=== PATIENT | female | born 1960 | race Caucasian/White ===

== ENCOUNTER → 2020-06-13 11:38 | Outpatient (REF) | payer BC, SELFPAY | LOC: ANHLAB 11:38 | PROVIDERS: PCP Physician Assistant; Visit Provider Nurse Practitioner | DX: C44.329 Squamous cell carcinoma of skin of other parts of face (principal) | CPT/HCPCS: 88305 ==

== ENCOUNTER → 2020-07-10 10:40 | Outpatient (REF) | payer BC, SELFPAY | LOC: ANHLAB 10:40 | PROVIDERS: PCP Physician Assistant; Visit Provider Nurse Practitioner | DX: C44.329 Squamous cell carcinoma of skin of other parts of face (principal); L85.9 Epidermal thickening, unspecified | CPT/HCPCS: 88305; 88331 ==